=== PATIENT | female | born 1940 | race Caucasian/White ===

== ENCOUNTER 2017-03-03 12:00 | Emergency (ER) | payer MEDICARE, OTHER ==
[~2017-03-03] VITALS: Ht 157.5 cm; Wt 80.7 kg
[2017-03-03] MEDS ORDERED: TETANUS,DIPTH,PERTUSS P/F (BOOSTRIX) 0.5 ML VIAL IM STA (12:21)
[2017-03-03] MEDS ORDERED: LEVO100T PO (12:26)
[2017-03-03] MEDS ORDERED: ESOM2.5S PO (12:27)
[2017-03-03] MEDS ORDERED: DPAS20025 PO (12:27)
--- NOTE | 2017-03-03 13:05 | Diagnostic Imaging Report ---
INDICATION: Right ankle injury after falling downstairs. FINDINGS: Three views of the right ankle show no fracture, dislocation, or other acute abnormalities. IMPRESSION: Negative right ankle. Dictated by: Dictated on workstation # [id number]
--- NOTE | 2017-03-03 13:05 | Diagnostic Imaging Report ---
INDICATION: Right knee pain. FINDINGS: Three views of the right knee show no fracture, dislocation or other acute abnormalities. IMPRESSION: Negative right knee. Dictated by: Dictated on workstation # [id number]
--- NOTE | 2017-03-03 13:07 | Diagnostic Imaging Report ---
INDICATION: Right hand injury. FINDINGS: Three views of the right hand show no fracture, dislocation, or other acute abnormalities. IMPRESSION: Negative right hand. Dictated by: Dictated on workstation # [id number]
--- NOTE | 2017-03-03 13:39 | ED Fall/Injury ---
General Chief Complaint: Trauma-Non Activation Stated Complaint: FALL/MULTIPLE INJURIES Nursing Triage Note: PT STATES SHE FELL DOWN APPROX 10 STAIRS AT HOME ONTO CONCRETE. NO LOC NOTED AT THIS TIME. PT FELL AND HIT HER RIGHT SIDE OF FACE AND RIGHT EXTREMETIES. Source: patient Exam Limitations: no limitations History of Present Illness Time seen by provider: 12:15 Initial Comments Here with report of fall down steps. She states that she was working on her porch when she stepped off a step accidentally and then fell down onto her right side on her knee and arms. Complains of pain to her right fifth finger at the IP joint and right knee and ankle. She was able to walk in here without difficulty. Complains of pain to the lateral aspect of the right ankle mostly in the right pinky mostly with somewhat less pain to the right knee. Abrasion noted to right hand and right knee. Tetanus is not up-to-date. States that she did not hit her head and she has no neck pain Location Injury Occurred: HOME Occurred: just prior to arrival Severity: mild Injuries/Pain Location: upper extremity, lower extremity Loss of Consciousness: no loss of consciousness Associated Symptoms (Fall): No Abdominal Pain, No Chest Pain, No Headache, No Muscle Spasms, No Neck Pain Allergies and Home Medications Allergies Coded Allergies: No Known Drug Allergies (Unverified , 03/03/17) Home Medications Dipyridamole/Aspirin 1 Ea Cap, 1 CAP PO, (Reported) Esomeprazole Magnesium 2.5 Mg Suspdr.pkt, 2.5 MG PO, (Reported) Levothyroxine Sodium 100 Mcg Tablet, 100 MCG PO, (Reported) Constitutional: see HPI, No chills, No fever Eyes: No Symptoms Reported Ears, Nose, Mouth, Throat: no symptoms reported Respiratory: no symptoms reported Cardiovascular: no symptoms reported Musculoskeletal: see HPI, No back pain, No joint pain, muscle pain, No neck pain Skin: see HPI, lesions Psychiatric/Neurological: No Symptoms Reported Past Oabjfzl-Vavvlr-Uyyebq Hx Patient Social History Alcohol Use: Denies Use Recreational Drug Use: No Smoking Status: Never a Smoker 2nd Hand Smoke Exposure: No Recent Foreign Travel: No Contact w/Someone Who Travel: No Recent Infectious Disease Expo: No Recent Hopitalizations: Yes (DUE TO SYNCOPE EPISODES) Seasonal Allergies Seasonal Allergies: No Surgeries Surgeries: Hysterectomy Respiratory Respiratory Disorders: COPD Cardiovascular Cardiac Disorders: Hypertension, Syncope Neurological Neurological Disorders: Parkinson's Disease, Stroke, TIA Gastrointestinal Gastrointestinal Disorders: Abdominal Hernia Endocrine Endocrine Disorders: Hypothyroidsim HEENT Loss of Vision: Denies Hearing Impairment: Denies Reviewed Nursing Assessment Reviewed/Agree w Nursing PMH: Yes Family Medical History Significant Family History: No Pertinent Family Hx Physical Exam Vital Signs Vital Sign - Last 12Hours 03/03/17 12:09 Temp 97.2 Pulse 70 Resp 20 B/P (MAP) 170/75 Pulse Ox 98 O2 Delivery Room Air Capillary Refill : Less Than 3 Seconds General Appearance: WD/WN, no apparent distress HEENT: PERRL/EOMI Neck: non-tender, full range of motion, supple, normal inspection Cardiovascular: regular rate, rhythm, no murmur Respiratory: lungs clear, normal breath sounds Gastrointestinal: non tender, soft Back: normal inspection, no CVA tenderness, no vertebral tenderness Extremities: other (tender to the right hand at the fifth IP joint. Tenderness to the right knee and lateral right ankle.) Neurologic/Psychiatric: no motor/sensory deficits, oriented x 3, other (distal sensation and circulation intact. Able to walk without difficulty.) Rillito Coma Score Best Eye Response: (4) Open Spontaneously Best Verbal Response: (5) Oriented Best Motor Response: (6) Obeys Commands Progress/Results/Core Measures Results/Orders My Orders Orders - RISSA CARMONA MD Hand, Right, 3 Views (03/03/17 12:21) Knee, Right, 3 Views (03/03/17 12:21) Ankle, Right, 3 Views (03/03/17 12:21) Dipht,Pertuss(Acell),Tet Adult (Boostrix (03/03/17 12:21) Vital Signs/I&O Vital Sign - Last 12Hours 03/03/17 12:09 Temp 97.2 Pulse 70 Resp 20 B/P (MAP) 170/75 Pulse Ox 98 O2 Delivery Room Air Blood Pressure Mean: 106 Progress Note : Progress Note Seen and evaluated. X-ray right hand, right knee and right ankle. No acute findings. tetanus updated. Discharged home with return precautions. Patient verbalize understanding instructions and agreement with plan. Diagnostic Imaging Diagonstic Imaging: Xray Plain Films/CT/US/NM/MRI: ankle Comments NAME: MARY NAVA [facility] REC#: [id number] PT STATUS: REG ER : 1940 PHYSICIAN: RISSA CARMONA MD ADMIT DATE: 03/03/17/ER Signed Date of Exam: 03/03/17 ANKLE, RIGHT, 3 VIEWS INDICATION: Right ankle injury after falling downstairs. FINDINGS: Three views of the right ankle show no fracture, dislocation, or other acute abnormalities. IMPRESSION: Negative right ankle. Dictated by: Dictated on workstation # [id number] Dict: 03/03/17 1302 Trans: 03/03/17 1313 Interpreted by: RISSA JAY Electronically signed by: RISSA JAY 03/03/17 131 Diagonstic Imaging: Xray Plain Films/CT/US/NM/MRI: hand Comments NAME: BRANDYMARY [employer] [facility] REC#: [id number] PT STATUS: REG : 1940 PHYSICIAN: RISSA CARMONA MD ADMIT DATE: 03/03/17/ER Signed Date of Exam: 03/03/17 HAND, RIGHT, 3 VIEWS INDICATION: Right hand injury. FINDINGS: Three views of the right hand show no fracture, dislocation, or other acute abnormalities. IMPRESSION: Negative right hand. Dictated by: Dictated on workstation # [id number] Dict: 03/03/17 1303 Trans: 03/03/17 1313 Interpreted by: RISSA JAY Electronically signed by: RISSA JAY 03/03/17 1313 Diagonstic Imaging: Xray Plain Films/CT/US/NM/MRI: knee Comments NAME: KENNYELLIS [facility] [employer] [facility] REC#: [id number] PT STATUS: REG : 1940 PHYSICIAN: RISSA CARMONA MD ADMIT DATE: 03/03/17/ER Signed Date of Exam: 03/03/17 KNEE, RIGHT, 3 VIEWS INDICATION: Right knee pain. FINDINGS: Three views of the right knee show no fracture, dislocation or other acute abnormalities. IMPRESSION: Negative right knee. Dictated by: Dictated on workstation # [id number] Dict: 03/03/17 1303 Trans: 03/03/17 1313 Interpreted by: RISSA JAY Electronically signed by: RISSA JAY 03/03/17 1313 Departure Impression Impression: Primary Impression: Abrasions of multiple sites Additional Impressions: Contusion of right knee Qualified Codes: S80.01XA - Contusion of right knee, initial encounter Contusion of right hand Qualified Codes: S60.221A - Contusion of right hand, initial encounter Muscle strain Disposition: HOME, SELF-CARE Condition: Improved Departure-Patient Inst. Decision time for Depature: 13:41 Referrals: NO,LOCAL PHYSICIAN (PCP/Family) Primary Care Physician Patient Instructions: Ankle Sprain (DC), Contusion (DC), Knee Sprain (DC), Skin Abrasions (DC) Add. Discharge Instructions: All discharge instructions reviewed with patient and/or family. Voiced understanding. You may take Tylenol or ibuprofen as needed for pain. Use ice pack to affected area as needed. Use Raheel wrap and splint as needed for comfort. Follow-up with your DrRegi in a few days for recheck. Return for worsening, fever, vomiting, weakness, breathing problems other concerns as needed. Work/School Note: Local Medical Staff Listing RISSA CARMONA MD March 03, 2017 13:39
[2017-03-03 14:09] VITALS: BP 136/74
== END 2017-03-03 14:09 | disposition home or self-care (01) ==
LOC: ER 12:04
DX: S80.211A Abrasion, right knee, initial encounter (principal); S60.511A Abrasion of right hand, initial encounter; S86.211A Strain of muscle(s) and tendon(s) of anterior muscle group at lower leg level, right leg, initial encounter; Z23 Encounter for immunization; I10 Essential (primary) hypertension; J44.9 Chronic obstructive pulmonary disease, unspecified; G20 Parkinson's disease; Z79.899 Other long term (current) drug therapy; W17.89XA Other fall from one level to another, initial encounter; Y92.018 Other place in single-family (private) house as the place of occurrence of the external cause; Y99.8 Other external cause status
CPT/HCPCS: 29130; 73130; 73562; 73610; 90715

== ENCOUNTER → 2017-09-28 | Outpatient (CLI) | payer MEDICARE, OTHER ==
[~2017-09-28] MED LIST: DPAS20025 PO; ESOM2.5S PO; LEVO100T PO
== END ==
LOC: RAD 10:45
PROVIDERS: ATTEND Pediatrics
DX: Z12.31 Encounter for screening mammogram for malignant neoplasm of breast (principal); Z98.890 Other specified postprocedural states
CPT/HCPCS: 77067

== ENCOUNTER → 2017-10-08 | Outpatient (CLI) | payer MEDICARE, OTHER ==
--- NOTE | 2017-10-08 11:37 | Diagnostic Imaging Report ---
EXAMINATION: DEXA scan. INDICATION: Z13.820 TECHNIQUE: Bone mineral density estimated based on dual energy radiography over the lumbar spine and femoral necks, was performed. FINDINGS: The lumbar spine T-score is 0.9. The left femoral neck T score is 1.1 and the right femoral neck T score is 1.1. IMPRESSION: Bone mineral density is within normal limits. Dictated by: Dictated on workstation # [id number]
== END ==
LOC: RAD 10:13
PROVIDERS: ATTEND Pediatrics
DX: Z13.820 Encounter for screening for osteoporosis (principal)
CPT/HCPCS: 77080

== ENCOUNTER → 2017-10-30 | Outpatient (CLI) | payer MEDICARE, OTHER ==
--- NOTE | 2017-10-30 12:28 | Diagnostic Imaging Report ---
Unilateral diagnostic left mammogram. The current study was also evaluated with a Computer Aided Detection (CAD) system. INDICATION: Abnormal mammo. FINDINGS: The screening mammogram performed on 09/28/2017 noted an 8 mm asymmetry in the central posterior aspect of the breast on the MLO view. This finding could not be identified with certainty on the CC view. A compression view of this area shows that this density seems to persist. An XCC view shows that this small density is in the far lateral aspect of the left breast. The tomographic views suggest that there is a small nodular density in this area. There also appears to be a single macrocalcification. This finding has a generally benign appearance, but I would recommend that ultrasound be performed for further study. IMPRESSION: Ultrasound will be recommended for further evaluation of the small benign-appearing nodular density in the far lateral aspect of the left breast. ACR BI-RADS Category 0: Incomplete. (Needs additional imaging evaluation). Result letter will be mailed to the patient. Note: At least 10% of breast cancer is not imaged by mammography. Dictated by: Dictated on workstation # [id number]
--- NOTE | 2017-10-30 12:28 | Diagnostic Imaging Report ---
EXAMINATION: Ultrasound of the left breast. INDICATION: Abnormal mammogram. FINDINGS: The screening mammogram performed on 09/28/2017 noted a small asymmetric density deep in the left breast. The diagnostic mammogram performed in conjunction with the study earlier today identified a small 3.8 mm fairly well-circumscribed nodular density in the far lateral aspect of the left breast. The ultrasound examination of this area, however, shows no discrete solid or cystic mass. I suspect that the finding on the mammogram is a benign process. Even so, I would recommend that a short-term (6 month) followup mammogram of the left breast be obtained for continued evaluation. IMPRESSION: There is no sonographic correlate to the small benign-appearing nodular density in the far lateral aspect of the left breast. A 6 month followup mammogram would be recommended for continued evaluation. ACR BI-RADS Category 3: Probably benign findings. Dictated by: Dictated on workstation # [id number]
== END ==
LOC: RAD 09:00
PROVIDERS: ATTEND Pediatrics
DX: R92.8 Other abnormal and inconclusive findings on diagnostic imaging of breast (principal)
CPT/HCPCS: 76641

== ENCOUNTER → 2017-11-19 | Outpatient (CLI) | payer MEDICARE, OTHER ==
--- NOTE | 2017-11-19 15:12 | Diagnostic Imaging Report ---
PROCEDURE: US Thyroid. TECHNIQUE: Multiple real-time grayscale images were obtained of the thyroid in various projections. INDICATION: Hypothyroidism. FINDINGS: The right lobe of the thyroid measures 4.0 x 1.8 x 1.4 cm and the left lobe measures 2.7 x 1.2 x 1.0 cm. There is a tiny hypoechoic nodule in the lower pole left lobe of the thyroid measuring approximately 5 mm x 4 mm. The right lobe is unremarkable. No dominant mass is detected. IMPRESSION: Tiny left lobe thyroid nodule. The study is otherwise unremarkable. Dictated by: Dictated on workstation # [id number]
== END ==
LOC: RAD 13:17
PROVIDERS: ATTEND Pediatrics
DX: E03.9 Hypothyroidism, unspecified (principal)
CPT/HCPCS: 76536

== ENCOUNTER → 2018-04-15 | Outpatient (CLI) | payer MEDICARE, OTHER ==
--- NOTE | 2018-04-15 10:24 | Diagnostic Imaging Report ---
INDICATION: Six-month followup left breast density. COMPARISON: 09/28/2017 and 10/30/2017. TECHNIQUE: Unilateral left 2D and 3D diagnostic mammography was performed. CC, MLO, and ML views were obtained. FINDINGS: The small density noted in the outer portion of the left breast at posterior depth with associated calcification appears to be stable. No change has occurred. No new abnormality is seen. The left axilla is unremarkable. IMPRESSION: Stable left breast density and calcification when compared with the prior examination from 6 months earlier. An additional 6 month followup is recommended to confirm stability. ACR BI-RADS Category 3: Probably benign findings. Result letter will be mailed to the patient. Note: At least 10% of breast cancer is not imaged by mammography. Dictated by: Dictated on workstation # [id number]
== END ==
LOC: RAD 07:56
PROVIDERS: ATTEND Pediatrics
DX: R92.1 Mammographic calcification found on diagnostic imaging of breast (principal)

== ENCOUNTER → 2018-11-25 | Outpatient (CLI) | payer MEDICARE, OTHER ==
--- NOTE | 2018-11-25 21:38 | Diagnostic Imaging Report ---
INDICATION: Six-month followup. Comparison made with prior examination 04/15/2018 back to 03/19/2016. The current study was also evaluated with a Computer Aided Detection (CAD) system. FINDINGS: The previously seen nodular density in the upper-outer aspect of left breast is less apparent on today's exam. There are otherwise scattered fibroglandular densities. There are scattered benign type calcifications. There is no dominant mass, spiculated lesion or suspicious calcification identified. Skin nipples and axilla are unremarkable. IMPRESSION: Benign. ACR BI-RADS Category 2: Benign findings. Result letter will be mailed to the patient. Note: At least 10% of breast cancer is not imaged by mammography. Dictated by: Dictated on workstation # [id number]
== END ==
LOC: RAD 12:46
PROVIDERS: ATTEND Pediatrics
DX: N63.20 Unspecified lump in the left breast, unspecified quadrant (principal); N63.10 Unspecified lump in the right breast, unspecified quadrant
CPT/HCPCS: 77066

== ENCOUNTER → 2018-12-23 | Outpatient (CLI) | payer MEDICARE, OTHER ==
--- NOTE | 2018-12-23 10:51 | Diagnostic Imaging Report ---
CLINICAL INDICATION: Patient with thyroid nodule. COMPARISONS: Ultrasound of the thyroid gland dated 11/19/2017. FINDINGS: THYROID NODULES: There is a stable 5 mm x 4 mm x 3 mm heterogeneous hypoechoic nodule in the left of midline region of the isthmus. THYROID GLAND: Besides the thyroid nodule, the thyroid gland has normal size, shape and echogenicity. The right lobe measures 3.9 cm x 1.8 cm x 1.2 cm and the left lobe measures 3.9 cm x 1.7 cm x 1.1 cm in their three dimensions. ISTHMUS: The isthmus is unremarkable and measures 2.5 mm in thickness. IMPRESSION: Stable 5 mm heterogeneous hypoechoic nodule involving the left of midline thyroid isthmus. Otherwise, unremarkable thyroid ultrasound exam. Dictated by: Dictated on workstation # [id number]
== END ==
LOC: RAD 08:18
PROVIDERS: ATTEND Pediatrics
DX: E04.1 Nontoxic single thyroid nodule (principal)
CPT/HCPCS: 76536